=== PATIENT | female | born 1950 | race Caucasian/White ===

== ENCOUNTER 2016-05-29 12:39 | Emergency (ER) | payer MEDICARE, OTHER ==
[~2016-05-29] VITALS: Ht 170.2 cm; Wt 85.5 kg
[2016-05-29 12:41] VITALS: BP 140/83; PULSE 80; RESP 20; O2SAT 98
--- NOTE | 2016-05-29 12:53 | ED.REPORT ---
HPI-Back Pain 40 and Over Date of Service May 29, 2016 ED Provider: Saroj Arboleda MD Patient is a 66 year old female with a history of hypertension who presents to the ED complaining of mid back pain onset 20 minutes ago. Associated symptoms include nausea, dry heaving, headache and neck stiffness. She describes the pain as a pressure that radiates to her upper back and the episode lasted 15 minutes. Patient denies chest pain, shortness of breath, lightheadedness, cough or coughing up blood, congestion, muscle spasms, dizziness, swelling or pain in lower extremities, or smoking. She reports that she has experienced similar pain and vomiting as a teenager during her menstrual cycles. The patient has not had any recent periods of long traveling, done any heavy lifting, or had any hormone therapy. She is not currently on any anticoagulants. Nursing Notes Stated Complaint: BACK PAIN Chief Complaint: Back Pain or Injury Nursing Notes Reviewed: Yes Allergies: Coded Allergies: No Known Allergies (Unverified , 05/29/16) General Time Seen by MD: 12:47 Chief Complaint Back pain Hx Obtained From: Patient Arrived By: Walk-in Sudden in Onset?: Yes Onset Occurred: 16 - 30 minutes ago Quality: Pressure Severity: Current: No pain currently Similar Sx Previous: No Past Medical History Past Medical History microscopic colitis Reports: Hypertension Past Surgical History none reported Smoking History Never Smoker Social History Other Social History: Good social support Ambulatory Status Independent Review of Systems Respiratory: Denies: Non-productive cough, Prod cough, bloody, Shortness of breath Cardiovascular: Denies: Chest pain GI: Reports: Nausea Musculoskeletal: Reports: Back pain, Neck pain ("stiffness"), Denies: Extremity pain, Extremity swelling Neurologic: Reports: Headache, Denies: Dizziness, Lightheaded Complete sys rev & neg: except as marked. Ears / Nose / Throat: Denies: Nasal congestion Physical Exam Initial Vital Signs Vital Signs (First) Date Time Temp Pulse Resp B/P Pulse Ox O2 Delivery O2 Flow Rate FiO2 05/29/16 12:41 37 80 20 140/83 98 Room Air Initial VS: Reviewed General/Constitutional: Awake, Alert, No acute distress Respiratory / Chest: Atraumatic, Breath sounds NL, Breath sounds = bilat, No respiratory distress Cardiovascular: Heart rate NL, Regular rhythm, Heart sounds NL, No murmurs Abdomen: Atraumatic, Soft, Non-tender Back: Atraumatic, Full range of motion Neurologic: Oriented X3, Speech NL, No motor deficits, No sensory deficits Neck: Atraumatic, Supple, Full range of motion Lower Extremity / Pelvis / MS: Atraumatic, Full range of motion, No edema Skin: Atraumatic, Color NL, No rash, Warm, Dry Head / Eyes: Atraumatic, Normocephalic, PERRL, EOMI ENT: Atraumatic, Airway patent, Mucous membranes moist Upper Extremity / MS: Atraumatic, Full range of motion Psychiatric: Affect NL, Mood NL Interpretation & Diagnostics Lab Results Interpretation Result Diagram: 05/29/16 1320 05/29/16 1320 Test 05/29/16 13:20 05/29/16 14:55 White Blood Count 4.9th/mm3 (3.8-10.1) Red Blood Count 4.18mil/mm3 (3.90-5.20) Hemoglobin 13.2g/dL (12.0-15.6) Hematocrit 41.1% (35.0-46.0) Mean Corpuscular Volume 98.3fL (81-100) Mean Corpuscular Hemoglobin 31.6pg (27.0-35.0) Mean Corpuscular Hemoglobin Concent 32.1% (32.0-37.0) Red Cell Distribution Width 12.8% (12.3-15.4) Platelet Count 242bil/L (150-400) Neutrophils (%) (Auto) 60.8% (40-74) Lymphocytes (%) (Auto) 29.4% (14-46) Monocytes (%) (Auto) 7.8% (4-12) Eosinophils (%) (Auto) 1.8% (0-5) Basophils (%) (Auto) 0.2% (0-3) Hold Blue Top Tube Received (Received) Sodium Level 139mEq/L (134-144) Potassium Level 3.9mEq/L (3.5-5.2) Chloride Level 100mEq/L (97-108) Carbon Dioxide Level 24mmol/L (18-29) Blood Urea Nitrogen 11mg/dL (8-27) Creatinine 0.52mg/dL (0.57-1.00) Estimat Glomerular Filtration Rate 168mL/min (>59) Glucose Level 97mg/dL (60-99) Calcium Level 10.3mg/dL (8.5-10.1) Magnesium Level 1.9mg/dL (1.6-2.6) Total Bilirubin 1.3mg/dL (0.0-1.2) Aspartate Amino Transf (AST/SGOT) 18U/L (0-50) Alanine Aminotransferase (ALT/SGPT) 17U/L (0-32) Alkaline Phosphatase 64U/L (25-165) Total Protein 7.7g/dL (6.4-8.4) Albumin 4.6g/dL (3.4-5.0) Hold Red Top Tube Received (Received) Hold Gant Top Tube Received (Received) Troponin T < 0.010ug/L (0.0-0.011) ECG Interpretation ECG Interpretation: No ST changes Time: 12:57 Interpreted by: ED physician Normal ECG Interpretation: Normal rate (73), Normal sinus rhythm X-Ray Chest Interpretation Chest Xray Interpretation: IMPRESSION: Normal for age. Dictated by: Alejandro Rhodes M.D. on 05/29/2016 at 13:19 Approved by: Alejandro Rhodes M.D. on 05/29/2016 at 13:19 View: Portable, 1 view Interpretation / Wet Read by: Interpret - Radiologist Re-Eval/Medical Decision Med Decision/Clinical Course 66-year-old female with no cardiac risk factors presenting with upper back pain 15 minutes radiating throughout back with associated nausea twenty minutes prior to arrival. EKG no signs ischemia. Vital signs stable. Troponins negative 2. She has no PE risk factors. She is perc negative other than age. She had no recurrence of her pain while she was here. Given normal EKG, no PE risk factors, normal chest x-ray, negative troponins 2, discussed the patient and she would prefer to go home and follow up with primary doctor on Tuesday. Return precautions given. Source of Hx: Old records Re-Evaluation/Progress : Time of Eval: 14:48 Re-Evaluation/Progress Note: Discussed first set of labs that were normal and the need to repeat in case of a heart attack. Discussed plan for discharge if the labs are normal. Counseled Regarding: Diagnosis, Lab results, Need for follow-up, When/why to return to ED Discharge & Departure Impression: Primary Impression: Chest pain, non-cardiac Disposition: Home Discharge Condition All VS Reviewed: Yes Condition: Stable Patient Instructions: Chest Pain (ED) Additional Instructions: Follow up with your primary care physician and screen vent binder if you would like to have a stress test done. Please return to the emergency department if you develop any new or worsening symptoms including difficulty breathing, chest pain , lightheadedness, dizziness or weakness. Amparoibe Attestation Portions of this note were transcribed by Petra Gomes. I, Dr. Arboleda personally performed the history, physical exam and medical decision-making; I reviewed and confirmed the accuracy of the information in the transcribed note. Signed by: Jolie Odom, 05/29/16 and 1453. Saroj Arboleda MD May 29, 2016 12:53 Jillian Gomes May 29, 2016 13:02
--- NOTE | 2016-05-29 13:20 | DRSVH ---
PROCEDURE: X-RAY CHEST ONE VIEW, PORTABLE ([id number]) INDICATIONS: CHEST PAIN TECHNIQUE: One view of the chest was acquired. COMPARISON: None. FINDINGS: Surgical changes and devices: None. Lungs and pleura: No pleural effusions or pneumothorax. Lungs are clear. Mediastinum: Mediastinal contours appear normal. Heart size is normal. Bones and chest wall: No suspicious bony lesions. Overlying soft tissues appear unremarkable. IMPRESSION: Normal for age. Dictated by: Alejandro Rhodes M.D. on 05/29/2016 at 13:19 Approved by: Alejandro Rhodes M.D. on 05/29/2016 at 13:19
[2016-05-29 13:45] LABS: BASOPHILS % (AUTO) 0.2 % (0-3); EOSINOPHILS % (AUTO) 1.8 % (0-5); MONOCYTES % (AUTO) 7.8 % (4-12); Mean Corpuscular Hemoglobin 31.6 pg (27.0-35.0); Mean Corpuscular Volume 98.3 fL (81-100); NEUTROPHILS % (AUTO) 60.8 % (40-74); Platelet Count 242 bil/L (150-400)
[2016-05-29 14:01] VITALS: BP 101/62; PULSE 69; RESP 16; O2SAT 100
[2016-05-29 14:11] LABS: TROPONIN T < 0.010 ug/L (0.0-0.011)
[2016-05-29 14:16] LABS: Magnesium 1.9 mg/dL (1.6-2.6)
[2016-05-29 17:00] VITALS: BP 123/64; PULSE 75; RESP 19; O2SAT 97
== END 2016-05-29 17:20 | disposition home or self-care (01) ==
LOC: SED 12:39
DX: R07.89 Other chest pain (principal); I10 Essential (primary) hypertension